=== PATIENT | male | born 1985 | race Caucasian/White ===

== ENCOUNTER → 2022-07-16 14:39 | Outpatient (CLI) | payer MEDICAID, SELFPAY ==
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
--- NOTE | 2022-07-16 14:43 | XR_ITS ---
FINAL REPORT CLINICAL HISTORY: fracture FINDINGS: LEFT CLAVICLE 2 views were obtained. There is no acute fracture. There is elevation of the distal clavicle with calcification at the acromioclavicular joint which is consistent with a chronic moderate acromioclavicular separation. There is no soft tissue abnormality. IMPRESSION: No acute bony abnormality. Elevation of distal clavicle consistent with chronic moderate acromioclavicular separation. Reviewed, Interpreted and Dictated by Bernardino Pruitt III, MD Transcribed by Iris Bey Authenticated and [facility]
== END ==
PROVIDERS: PCP Family Medicine; Visit Provider Family Medicine
DX: M54.2 Cervicalgia (principal); S42.002A Fracture of unspecified part of left clavicle, initial encounter for closed fracture
CPT/HCPCS: 72040; 73000